=== PATIENT | female | born 1990 | race Caucasian/White ===

== ENCOUNTER 2018-12-05 12:04 | Emergency (ER) | payer MEDICAID ==
[~2018-12-05] VITALS: Ht 162.6 cm; Wt 70.0 kg
[2018-12-05] MEDS ORDERED: MORPHINE SULFATE 4 MG/ML CPJ (NOT FOR IM USE) IV STA (13:20)
[2018-12-05] MEDS ORDERED: ONDANSETRON HCL 4MG/2ML INJ IV STA (13:20)
[2018-12-05] MEDS ORDERED: KETOROLAC 30MG/ML VIAL IV STA (13:20)
[2018-12-05] MEDS ORDERED: SODIUM CHLORIDE 0.9% 1,000 ML IV ONE (13:20)
[2018-12-05 13:56] LABS: BASOPHILS % 0.8 % (0.0-2.0); HEMATOCRIT. 36.4 % (36.0-48.0); HEMOGLOBIN. 12.3 g/dL (12.0-16.0); LYMPHOCYTES % 35.9 % (20.0-50.0); MEAN CORPUSCULAR VOLUME 91.8 fL (81.0-99.0); MEAN PLATELET VOLUME 9.2 fl (7.4-10.4); MONOCYTES % 11.2 % (2.0-8.0); NEUTROPHILS % 51.1 % (40.0-76.0); PLATELET 261 x1000/uL (130-400); RED BLOOD CELL COUNT 3.96 mill/uL (4.2-5.4); RED CELL DISTRIBUTION WIDTH 13.3 % (11.6-14.6)
[2018-12-05 14:01] LABS: CHLORIDE 109 mEq/L (98-107)
[2018-12-05 14:13] LABS: HCG SCREEN NEGATIVE
[2018-12-05] MEDS ORDERED: ONDANSETRON HCL 4MG/2ML INJ IV ONE (16:45)
[2018-12-05 17:00] LABS: CLARITY URINE CLOUDY (CLEAR); COLOR URINE YELLOW (YELLOW); KETONES URINE NEGATIVE (NEGATIVE); LEUKOCYTE ESTERASE URINE TRACE (NEGATIVE); NITRITE URINE NEGATIVE (NEGATIVE); OCCULT BLOOD URINE NEGATIVE (NEGATIVE); PH URINE 6.5 (4.5-8.0); PROTEIN URINE NEGATIVE (NEGATIVE); SPECIFIC GRAVITY URINE 1.013 (1.005-1.030); UROBILINOGEN URINE 0.2 E.U./dL (0.2-1.0)
[2018-12-05] MEDS ORDERED: CEFTRIAXONE 1 G PREMIX 50 ML IV ONE (17:18)
[2018-12-05 18:00] VITALS: BP 114/52
== END 2018-12-05 18:15 | disposition home or self-care (01) ==
LOC: ER 12:04
DX: N12 Tubulo-interstitial nephritis, not specified as acute or chronic (principal); Z87.442 Personal history of urinary calculi; Z98.890 Other specified postprocedural states
CPT/HCPCS: 36415; 74176; 80053; 81003; 83690; 84703; 85025; 96361; 96365; 96375; 96376; 99284; J0696; J1885; J2270; J2405; J7030